=== PATIENT | female | born 1960 | race Caucasian/White ===

== ENCOUNTER → 2020-05-24 | Outpatient (CLI) | payer BC | LOC: KOH-I 12:46 | DX: Z12.2 Encounter for screening for malignant neoplasm of respiratory organs (principal); Z87.891 Personal history of nicotine dependence; R91.8 Other nonspecific abnormal finding of lung field | CPT/HCPCS: G0297 ==

== ENCOUNTER → 2020-12-04 | Outpatient (CLI) | payer BC, OTHER ==
[2020-12-04 08:27] LABS: RED BLOOD COUNT 4.5 M/UL (4.00-5.10); WHITE BLOOD COUNT 5.9 K/UL (4.5-11.0)
[2020-12-04 08:57] LABS: BUN/CREATININE RATIO 13 (0-10)
== END ==
LOC: LAB 07:51
PROVIDERS: Internal Medicine
DX: Z13.1 Encounter for screening for diabetes mellitus (principal); E78.5 Hyperlipidemia, unspecified; E55.9 Vitamin D deficiency, unspecified; Z79.899 Other long term (current) drug therapy
CPT/HCPCS: 80053; 80061; 84439; 84443; 85025

== ENCOUNTER → 2020-12-07 | Outpatient (CLI) | payer BC, OTHER | LOC: RAD 16:57 | DX: M25.551 Pain in right hip (principal); M25.552 Pain in left hip | CPT/HCPCS: 73522 ==

== ENCOUNTER → 2021-01-09 | Outpatient (CLI) | payer BC, OTHER | LOC: MAMO 01-06 09:30 | DX: Z12.31 Encounter for screening mammogram for malignant neoplasm of breast (principal) | CPT/HCPCS: 77063; 77067 ==

== ENCOUNTER → 2021-05-18 | Outpatient (CLI) | payer BC, OTHER | LOC: RAD 09:17 | DX: M54.50 Low back pain, unspecified (principal); M51.36 Other intervertebral disc degeneration, lumbar region | CPT/HCPCS: 72110 ==

== ENCOUNTER → 2021-05-28 | Outpatient (CLI) | payer BC, OTHER ==
[2021-05-28 09:04] LABS: HEMOGLOBIN 14.6 gm/dl (12.3-15.3); RED BLOOD COUNT 4.7 M/UL (4.00-5.10); WHITE BLOOD COUNT 5.2 K/UL (4.5-11.0)
[2021-05-28 09:41] LABS: BUN/CREATININE RATIO 11 (0-10)
== END ==
LOC: LAB 08:36 → LBRF 08:36
PROVIDERS: Internal Medicine
DX: E78.5 Hyperlipidemia, unspecified (principal); Z51.81 Encounter for therapeutic drug level monitoring; R53.83 Other fatigue; I10 Essential (primary) hypertension; Z79.899 Other long term (current) drug therapy
CPT/HCPCS: 80053; 80061; 82607; 82746; 84439; 84443; 85025

== ENCOUNTER → 2021-08-17 | Outpatient (CLI) | payer BC, OTHER | LOC: RAD 16:20 | DX: R06.2 Wheezing (principal) | CPT/HCPCS: 71046 ==

== ENCOUNTER → 2021-09-22 | Outpatient (CLI) | payer BC, OTHER | LOC: KOH-I 14:30 | DX: Z87.891 Personal history of nicotine dependence (principal); R91.8 Other nonspecific abnormal finding of lung field | CPT/HCPCS: 71271 ==